=== PATIENT | male | born 1970 | race Caucasian/White ===

== ENCOUNTER 2020-12-05 13:15 | Emergency (ER) | payer SELFPAY ==
[2020-12-05 13:52] VITALS: BP 121/74; PULSE 74; RESP 18; TEMP 36.7; O2SAT 98; BMI 21.6
--- NOTE | 2020-12-05 14:09 | W.ED.WOUNDLC ---
HPI - Wound/Laceration General: Chief Complaint: Wound/Laceration Stated Complaint: abscess LUE History of Present Illness: HPI narrative: Patient injected with methamphetamines a week ago now has drainage abscess to the left arm with 2-3 pimples popped up around that. Denies fever chills. Onset (ago): day(s) Extremity Location: Left: forearm Context: sharp object use (Use needle for methamphetamine injection) Associated symptoms: Reports no associated symptoms; Denies chills, fever(s), nausea or vomiting Review of Systems Const: Denies: fever(s), chills or body aches Eyes: Denies: change in vision or blurry vision ENMT: Denies: throat pain or nasal congestion Card: Denies: chest pain or dyspnea on exertion Resp: Denies: dyspnea, productive cough or non-productive cough GI: Denies: abdominal pain, nausea or vomiting : Denies: difficulty urinating Musc: Denies: extremity pain Skin/Breast: Reports: erythema, skin swelling (Left forearm) and sores; Denies: rash Neuro: Denies: headache(s) Psych: Denies: anxiety or depression Zaid/Lymph: Denies: easy bruising Physical Exam Const: COMMON NORMALS: no acute distress Cardio: COMMON NORMALS: regular rate RATE: regular rate Psych: COMMON NORMALS: mental status grossly normal Skin: OTHER: Left forearm near the elbow about 2 inch away shows a carbuncle that is actively draining. He has 3 other small red papular areas spring upper round that abscess prior to 3 inches away. Course Vital Signs: Vital signs: Vital Signs Temperature 98.0 F 12/05/20 13:52 Pulse Rate 74 12/05/20 13:52 Respiratory Rate 18 12/05/20 13:52 Blood Pressure 121/74 12/05/20 13:52 Pulse Oximetry 98 12/05/20 13:52 MDM - Wound/Laceration MDM Narrative: Medical decision making narrative: Patient. Take antibiotics and quit using methamphetamines if he is going to use him to get a clean needle each time. Patient has no history of MRSA. Patient encouraged to follow back primary care provider to make sure complete resolution of symptoms. Discharge Plan Discharge Patient Disposition: Home Clinical Impression: Abscess Condition: Stable Prescriptions: New clindamycin HCl 300 mg capsule 300 mg PO Q8H 7 Days Qty: 21 RF: 0 Discharge Orders: Discharge ED (Routine); Ordered 12/05/20 Ordered By: Joaquin Bailey Discharge Diet: Usual diet Discharge Activity: Resume usual activity Patient Instructions: Methamphetamine Abuse (ED), Abscess (ED) Activity Restrictions/Additional Instructions: Follow-up with medical provider as directed. Take medications as prescribed. Return to the ER or your medical provider if condition worsens. Please read and understand discharge instructions. If any questions ask please. Allow wound to continue to drain. If worsening symptoms return here or go see her primary care provider. Coding Level of Care Code ED Forming Department End Finder for Aaron Luna
== END 2020-12-05 14:26 | disposition home or self-care (01) ==
PROVIDERS: Emergency Provider Nurse Practitioner Family
DX: L02.414 Cutaneous abscess of left upper limb (principal)
CPT/HCPCS: 87070; 87077; 87186; 99282

== ENCOUNTER 2021-03-10 13:03 | Emergency (ER) | payer SELFPAY ==
[2021-03-10 13:15] VITALS: BP 132/79; PULSE 81; RESP 16; TEMP 36.6; O2SAT 98
--- NOTE | 2021-03-10 16:31 | ED_ITS ---
HPI - Back Pain/Injury General: Chief Complaint: Back Pain/Injury Stated Complaint: LOW BACK PAIN Time Seen by Provider: 03/10/21 16:31 History of Present Illness: HPI Narrative: Patient is a 50-year-old male comes to the ED with acute on chronic lower back pain. Patient says he has had back pain like this before and every now and then it flares up. This episode of acute lower back pain started approximately 1 week ago. Pain is located in the lower back and isn't aching pain. He rates it currently a 6 out of 10. Any movement with core body causes pain in the lower back. Denies any injury or trauma to cause acute back pain. Denies any pain radiating down legs. Denies any weakness to lower extremities, bladder or bowel incontinence, pelvic anesthesia. Associated symptoms: Deny abdominal pain, chills, dysuria, fatigue, fever(s), hematuria, nausea or vomiting Review of Systems Const: Denies: fever(s), chills or fatigue Eyes: Denies: change in vision or eye discomfort ENMT: Denies: throat pain, odynophagia, nasal discharge or nasal congestion Card: Denies: chest pain, palpitations, edema, swelling of feet/ankles, dyspnea on exertion or orthopnea Resp: Denies: dyspnea, productive cough or non-productive cough GI: Denies: abdominal pain, nausea, vomiting, diarrhea, constipation or hematochezia : Denies: flank pain, difficulty urinating, dysuria or hematuria Musc: Reports: back pain; Denies: neck pain or extremity swelling Skin/Breast: Denies: rash or new lesions Neuro: Denies: headache(s), numbness in extremities or weakness in extremities Physical Exam Const: COMMON NORMALS: no acute distress, patient oriented x3 and alert GENERAL APPEARANCE: cooperative and comfortable HENMT: COMMON NORMALS: normocephalic HEAD & SCALP: normocephalic MOUTH: Normal oral and palatal mucosa present TEETH & GINGIVA: Yes poor dentition THROAT: posterior oropharynx normal and uvula midline Eye: COMMON NORMALS: Equal, round and reactive pupils present PUPIL: Yes Equal, round and reactive pupils present Neck/C-Spine: COMMON NORMALS: supple GENERAL: Yes normal visual inspection Resp: COMMON NORMALS: normal respiratory effort, No retractions, No use of accessory muscles and clear to auscultation bilaterally AUSCULTATION: clear to auscultation bilaterally Cardio: COMMON NORMALS: regular rate, regular rhythm, S1 normal heart sound present, S2 normal heart sound present, No gallops present (Cardio), No clicks present (Cardio), No murmurs present (Cardio) and Peripheral pulses 2+ throughout RATE: regular rate RHYTHM: regular rhythm HEART SOUNDS: S1 normal heart sound present and S2 normal heart sound present PERIPHERAL PULSES: Peripheral pulses 2+ throughout GI: COMMON NORMALS: Normal to inspection, nondistended, normoactive bowel sounds present, Soft to palpation, non-tender and no masses PALPATION: Yes Soft to palpation : COMMON NORMALS: Yes no CVA tenderness BLADDER/KIDNEY EXAM: Yes no CVA tenderness Back/Pelvis: COMMON NORMALS: no CVA tenderness LUMBAR SPINE/LOWER BACK: No lumbar spinal tenderness, Yes paraspinal muscle tenderness Lumbar paraspinal muscle tenderness: bilateral Bilateral lumbar paraspinal muscle tenderness: L3, L4 and L5 and Yes other soft tissue findings Other lumbar soft tissue findings laterality: bilateral Bilateral other lumbar soft tissue findings details: tenderness (Muscular) Extremity: COMMON NORMALS: normal to inspection Neuro: COMMON NORMALS: patient oriented x3 and moves all extremities SENSORIUM/ORIENTATION: Yes alert Skin: GENERAL SKIN EXAM: dry skin Course Vital Signs: Vital signs: Vital Signs Temperature 97.8 F 03/10/21 13:15 Pulse Rate 81 03/10/21 13:15 Respiratory Rate 16 03/10/21 13:15 Blood Pressure 132/79 03/10/21 13:15 Pulse Oximetry 98 03/10/21 13:15 MDM - Back Pain/Injury MDM Narrative: Medical decision making narrative: Patient is a 50-year-old male comes to the ED with acute on chronic lower back pain. He denies any pain rating down to his lower extremities. Denies any acute injury or trauma to cause back pain. Denies cauda equina symptoms. Exam shows lumbar paraspinal muscle tenderness bilaterally. Vitals stable. Patient was given a dose of Toradol here in the ED. He was diagnosed lumbar back pain and discharged home with a prescription for Celebrex, cyclobenzaprine and a Medrol Dosepak. Return to ED precautions given. Rest and apply ice or heat on lower back to help with symptoms. Follow-up with PCP in 7 to 10 days for reevaluation. Patient understood and agreed with plan. Discharge Plan Discharge Patient Disposition: Home Clinical Impression: Lumbar back pain Condition: Stable Prescriptions: New Celebrex 100 mg capsule 100 mg PO BID PRN (Reason: pain) Qty: 20 RF: 0 Medrol (Zachary) 4 mg tablets,dose pack See Rx Instructions .ROUTE .COMPLEX Qty: 21 RF: 0 cyclobenzaprine 10 mg tablet 10 mg PO BID PRN (Reason: muscle spasm) Qty: 20 RF: 0 Discharge Orders: Discharge ED (Routine); Ordered 03/10/21 Ordered By: Ashok Morales Discharge Diet: Regular Discharge Activity: Resume usual activity Patient Instructions: Acute Low Back Pain (ED) Activity Restrictions/Additional Instructions: Follow-up with medical provider as directed in 7 to 10 days reevaluation. Rest and limit lifting for the next couple days to help with healing. Apply cold pack or heat on lower back topical symptoms as well. Take medications as prescribed. Cyclobenzaprine is a muscle relaxer and can cause some drowsiness so take at night before going to bed. Return to the ER or your medical provider if condition worsens. Please read and understand discharge instructions. Thank you for choosing [facility] for your healthcare needs today. Please realize this is an emergency room and that we are providing you with a medical screening exam and this may not be complete and all inclusive of all the testing and or work up that you may need to determine your ailment or severity of your illness. It is very important that you follow up as instructed or that you return to the Emergency Department should you have concerns or if your condition changes or worsens in any way. Coding Level of Care Code ED Info Print Press Operator for Aaron Luna Exam Comprehensive
[2021-03-10] MEDS: ketorolac 60 mg/2 mL INJ IM (17:00)
== END 2021-03-10 17:15 | disposition home or self-care (01) ==
PROVIDERS: Emergency Provider Physician Assistant
DX: M54.5 Low back pain (principal)
CPT/HCPCS: 96372; 99283; J1885